=== PATIENT | male | born 1955 | race Hispanic/Latino ===

== ENCOUNTER 2022-02-14 00:09 | Emergency (ER) | payer OTHER ==
[~2022-02-14] VITALS: Ht 167.6 cm; Wt 78.9 kg
[2022-02-14 00:14] VITALS: BP 153/54
[2022-02-14] MEDS ORDERED: GABA300C PO (00:28)
[2022-02-14] MEDS ORDERED: LIDOP TD (00:28)
[2022-02-14] MEDS ORDERED: LIDOCAINE 5% TOPICAL PATCH TP ONE (00:30)
[2022-02-14] MEDS ORDERED: GABAPENTIN 100 MG CAPSULE PO SCH (00:30)
== END 2022-02-14 01:08 | disposition home or self-care (01) ==
LOC: EDH 00:09
DX: G89.29 Other chronic pain (principal); M54.6 Pain in thoracic spine; Z88.2 Allergy status to sulfonamides